=== PATIENT | female | born 1935 ===

== ENCOUNTER 2019-01-22 19:07 | Emergency (ER) | payer OTHER ==
--- NOTE | 2019-01-22 20:20 | RAD REPORT ---
EXAM DESCRIPTION: RAD - Humerus Right - 01/22/2019 8:14 pm CLINICAL HISTORY: Swelling;Pain COMPARISON: No comparisons FINDINGS: Degenerative changes are present involving the AC joint. High-riding humeral head is noted . No acute fracture or dislocation seen.
--- NOTE | 2019-01-22 20:25 | RAD REPORT ---
EXAM DESCRIPTION: CT - CTHCSPWOC - 01/22/2019 8:14 pm CLINICAL HISTORY: Trauma, head and neck injury. PAIN COMPARISON: No comparisons TECHNIQUE: Axial 5 mm thick images of the head were obtained. Axial 2 mm thick images of the cervical spine were obtained with sagittal and coronal reconstruction images generated and reviewed. All CT scans are performed using dose optimization technique as appropriate and may include automated exposure control or mA/KV adjustment according to patient size. FINDINGS: CT HEAD WITHOUT CONTRAST: No acute hemorrhage, hydrocephalus or extra-axial collection is identified.No areas of brain edema or midline shift. The paranasal sinuses and mastoids are clear.The calvarium is intact. Left frontal scalp hematoma is seen. CT CERVICAL SPINE WITHOUT CONTRAST: No fracture or subluxation.Moderate mid cervical degenerative changes.No prevertebral soft tissues sw elling is identified. IMPRESSION: No acute intracranial or cervical spine findings. Moderate midcervical degenerative changes.
--- NOTE | 2019-01-22 20:26 | RAD REPORT ---
EXAM DESCRIPTION: CT - CTFB CLINICAL HISTORY: SWELLING Trauma, facial pain and swelling. COMPARISON: No comparisons TECHNIQUE: Axial 2 mm thick images of the face were obtained with sagittal and coronal reconstructio n images. All CT scans are performed using dose optimization technique as appropriate and may include automated exposure control or mA/KV adjustment according to patient size. FINDINGS: No acute facial bone fracture is seen.The mandible is intact. Left frontal scalp and perio rbital soft tissue swelling. The globes and orbital contents are grossly unremarkable.The paranasal sinuses and mastoids are clear . IMPRESSION: Negative for facial bone fracture.
[2019-01-22] MEDS ORDERED: LIDOCAINE 1% MPF 5 ML VIAL ONE (21:02)
[2019-01-22] MEDS ORDERED: TETANUS & DIPHTHERIA TOX,ADULT 0.5 ML VIAL ONE (21:11)
--- NOTE | 2019-01-22 21:18 | ER ---
Nurse's Notes [facility] Name: Kalli Krause Age: 83 yrs Sex: Female : 1935 Arrival Date: 01/22/2019 Time: 19:07 Bed 7 Private MD: Diagnosis: Contusion of unspecified part of head-left periorbital and left frontal scalp;Laceration without foreign body of left elbow Presentation: 01/22 19:21 Presenting complaint: she was walking down the stairs when she missed the last step and rv hit the concrete. denies LOC. does not take any blood thinner. Care prior to arrival: None. Mechanism of Injury: Fall down 1 steps. Trauma event details: Injury occurred in the [facility], Injury occurred: at home. Injury occurred: January 22, 2019 Injury occurred at: 18:30. 19:21 Acuity: ASHOK 3 rv 19:21 Method Of Arrival: Ambulatory rv 19:27 Transition of care: patient was not received from another setting of care. Onset of ak1 symptoms was January 22, 2019. Risk Assessment: Do you want to hurt yourself or someone else? Patient reports no desire to harm self or others. Initial Sepsis Screen: Does the patient meet any 2 criteria? No. Patient's initial sepsis screen is negative. Does the patient have a suspected source of infection? No. Patient's initial sepsis screen is negative. Historical: - Allergies: 19:25 Codeine; rv - PMHx: 19:25 Diabetes - NIDDM; rv - PSHx: 19:25 Unable to obtain; rv - Immunization history: Last tetanus immunization: unknown. - Social history:: Smoking status: unknown. - Ebola Screening: : No symptoms or risks identified at this time. Screenin:23 Abuse screen: Denies threats or abuse. Denies injuries from another. Nutritional ak1 screening: No deficits noted. Tuberculosis screening: No symptoms or risk factors identified. Fall Risk None identified. Primary Survey: 19:25 NO uncontrolled hemorrhage observed. rv 19:27 Breathing/Chest: Respiratory pattern: regular, Respiratory effort: unlabored. ak1 Circulation: Skin color: pink, Skin temperature: warm, dry. Disability Alert. Exposure/Environment: All clothing and personal items were removed. Forensic evidence collection is not deemed to be indicated at this time. Items placed in patient belonging bag. There is no evidence of uncontrolled external bleeding. Obvious injury(ies) are noted at this time: swelling above left eye with an abrasion. left elbow with abrasion. 19:29 Reassessment Breathing/Chest Respiratory pattern Regular Respiratory effort Spontaneous ak1 Unlabored Circulation Color [place] Temperature Warm Dry Disability Alert. Secondary Survey: 19:27 HEENT: Eyes: Edema noted left eyebrow and left upper eyelid. Gastrointestinal: No ak1 deficits noted. : No signs and/or symptoms were reported regarding the genitourinary system. Musculoskeletal: No signs and/or symptoms reported regarding the musculoskeletal system. Injury Description: trip and fall from standing. Assessment: 19:22 General: Appears in no apparent distress. uncomfortable, Behavior is calm, cooperative. rv Pain: Complains of pain in head, left and right elbow. right side of the hip. Neuro: Level of Consciousness is awake, alert, obeys commands, Oriented to person, place, time, situation. EENT:. Cardiovascular: Patient's skin is warm and dry. Respiratory: Airway is patent. GI: No signs and/or symptoms were reported involving the gastrointestinal system. : No signs and/or symptoms were reported regarding the genitourinary system. Derm: Skin is intact. Musculoskeletal: Swelling present in left eye and left hand. 19:23 General: Appears in no apparent distress. comfortable, well groomed, Behavior is calm, ak1 cooperative, anxious. Pain: Complains of pain in inner aspect of left eyebrow, middle aspect of left eyebrow, outer aspect of left eyebrow and left supraorbital ridge. Neuro: Level of Consciousness is awake, alert, obeys commands, Oriented to person, place, time, situation, Appropriate for age Paint [employer] Table Edger are equal bilaterally Moves all extremities. Full function Speech is normal, swelling noted above left eye. Pupils are PERRLA. Cardiovascular: No deficits noted. Respiratory: Airway is patent Respiratory effort is even, unlabored. GI: No signs and/or symptoms were reported involving the gastrointestinal system. : No signs and/or symptoms were reported regarding the genitourinary system. EENT: Eyes pt able to move left eye. pt denies LOC with fall at 1800. swelling and abrasion above left eye. Derm: Wound noted Other: abrasion to left elbow, cleaned and triple antibiotic applied with bandaid. Musculoskeletal: No signs and/or symptoms reported regarding the musculoskeletal system. 20:09 Reassessment: Patient and/or family updated on plan of care and expected duration. Pain ea level reassessed. Patient is alert, oriented x 3, equal unlabored respirations, skin warm/dry/pink. Pt taken to CT. 20:25 Reassessment: Patient and/or family updated on plan of care and expected duration. Pain ea level reassessed. Patient is alert, oriented x 3, equal unlabored respirations, skin warm/dry/pink. Returned from CT. 20:44 Reassessment: Patient and/or family updated on plan of care and expected duration. Pain ea level reassessed. Patient is alert, oriented x 3, equal unlabored respirations, skin warm/dry/pink. Provider at bedside updating pt on plan of care. 21:54 Reassessment: Patient and/or family updated on plan of care and expected duration. Pain ea level reassessed. Patient is alert, oriented x 3, equal unlabored respirations, skin warm/dry/pink. Discharge instruction given to patient, verbalized the understanding of instruction. Pt left ED ambulatory accompanied by family. tolerating well. Vital Signs: 19:22 BP 162 / 101; Pulse 107; Resp 16; Temp 98.3; Pulse Ox 96% on R/A; ak1 20:09 BP 185 / 49; Pulse 97; Resp 18; Pulse Ox 96% on R/A; ea 21:30 BP 160 / 58; Pulse 78; Resp 18; Pulse Ox 96% on R/A; ea Visual Acuity: 19:23 ; pt denies visual changes in left eye. pt stated she can see out of the left eye ak1 [place] Coma Score: 19:23 Eye Response: spontaneous(4). Verbal Response: oriented(5). Motor Response: obeys ak1 commands(6). Total: 15. 20:09 Eye Response: spontaneous(4). Verbal Response: oriented(5). Motor Response: obeys ea commands(6). Total: 15. Trauma Score (Adult): 19:23 Eye Response: spontaneous(1); Verbal Response: oriented(1); Motor Response: obeys ak1 commands(2); Systolic BP: > 89 mm Hg(4); Respiratory Rate: 10 to 29 per min(4); [place] Score: 15; Trauma Score: 12 ED Course: 19:07 Patient arrived in ED. as 19:20 Travis Lowry, BROKERAGE MANAGER is PHCP. pm1 19:20 Brady Kovacs MD is Attending Physician. pm1 19:21 David Collier, RN is Primary Nurse. rv 19:22 Kelley Rachel, RN is Primary Nurse. ak1 19:22 Triage completed. rv 19:23 Patient has correct armband on for positive identification. Placed in gown. Bed in low ak1 position. Call light in reach. Side rails up X 1. Adult w/ patient. Pulse ox on. NIBP on. Warm blanket given. 19:25 Arm band placed on right wrist. Patient placed in the treatment room, on a stretcher, rv on cook night, on pulse oximetry, Patient notified of wait time. 19:27 No provider procedures requiring assistance completed. ak1 19:27 Patient maintains SpO2 saturation greater than 95% on room air. ak1 19:29 Thermoregulation: warm blanket given to patient. ak1 20:07 Humerus Right XRAY In Process Unspecified. EDMS 20:15 CT Head C Spine In Process Unspecified. EDMS 20:15 CT Facial Bones W/O Con In Process Unspecified. EDMS 21:14 Assist provider with laceration repair on left elbow that was between 2.6 to 7.5 cm ea using sutures. Set up tray. Performed by Travis Lowry BROKERAGE MANAGER Dressed with Neosporin, Patient tolerated well. 21:55 Patient did not have IV access during this emergency room visit. ea Administered Medications: 21:08 Drug: Lidocaine (1 %) 5 ml {Note: administered by provider.} Volume: 5 ml; Route: ea Infiltration; 21:13 Drug: Tetanus-Diphtheria Toxoid Adult 0.5 ml {Steamtable Attendant Railroad: [employer]. Exp: ea 08/03/2020. Lot #: [id number]. } Route: IM; Site: left deltoid; 21:55 Follow up: Response: No adverse reaction ea Intake: 19:27 PO: 0ml; Total: 0ml. ak1 Outcome: 21:17 Discharge ordered by . pm1 21:55 Discharged to home ambulatory, with family. ea 21:55 Condition: stable 21:55 Discharge instructions given to patient, Instructed on discharge instructions, follow up and referral plans. medication usage, Demonstrated understanding of instructions, follow-up care, medications, Prescriptions given X 1. 21:55 Patient's length of stay was not longer than 2 hours. ea 21:55 Patient left the ED. ea Signatures: Dispatcher [employer] EDYaz Zaragoza Amber, RN RN ak1 Travis Lowry, BROKERAGE MANAGER BROKERAGE MANAGER pm1 Che Ulloa RN RN David Espitia RN RN rv
--- NOTE | 2019-01-22 21:18 | EDPHYS ---
Physician Documentation [facility] Name: Kalli Krause Age: 83 yrs Sex: Female : 1935 Arrival Date: 01/22/2019 Time: 19:07 Bed 7 Private MD: ED Physician Brady Kovacs HPI: 01/22 20:23 This 83 yrs old Female presents to ER via Ambulatory with complaints of Fall Injury, pm1 Laceration. 20:23 Details of fall: The patient fell and struck a concrete surface. Onset: The pm1 symptoms/episode began/occurred just prior to arrival. Associated injuries: The patient sustained injury to the head, contusion, swelling, to left forehead, left elbow, laceration, right bicep, swelling. The patient has not recently seen a physician, out of town. Patient was walking down a step and tripped. Her right hand held onto the rail and she landed on her left forehead. No LOC, neck pain, N/V. Patient presenting with laceration to left elbow and swelling to left forehead. Historical: - Allergies: 19:25 Codeine; rv - PMHx: 19:25 Diabetes - NIDDM; rv - PSHx: 19:25 Unable to obtain; rv - Immunization history: Last tetanus immunization: unknown. - Social history:: Smoking status: unknown. - Ebola Screening: : No symptoms or risks identified at this time. ROS: 20:23 Constitutional: Negative for fever, chills, and weight loss, Eyes: Negative for injury, pm1 pain, redness, and discharge, ENT: Negative for injury, pain, and discharge, Neck: Negative for injury, pain, and swelling, Cardiovascular: Negative for chest pain, palpitations, and edema, Respiratory: Negative for shortness of breath, cough, wheezing, and pleuritic chest pain, Abdomen/GI: Negative for abdominal pain, nausea, vomiting, diarrhea, and constipation, Back: Negative for injury and pain. 20:23 MS/extremity: Positive for pain, of the right bicep, Negative for decreased range of motion, deformity. 20:23 Skin: Positive for laceration(s), of the left elbow. 20:23 Neuro: Positive for headache, of the left supraorbital ridge and left side of forehead, Negative for dizziness, loss of consciousness, numbness, seizure activity, tingling, weakness. Exam: 20:23 Constitutional: This is a well developed, well nourished patient who is awake, alert, pm1 and in no acute distress. 20:23 Eyes: Pupils equal round and reactive to light, extra-ocular motions intact. Lids and lashes normal. Conjunctiva and sclera are non-icteric and not injected. Cornea within normal limits. Periorbital areas with no swelling, redness, or edema. ENT: Nares patent. No nasal discharge, no septal abnormalities noted. Tympanic membranes are normal and external auditory canals are clear. Oropharynx with no redness, swelling, or masses, exudates, or evidence of obstruction, uvula midline. Mucous membranes moist. Neck: Trachea midline, no thyromegaly or masses palpated, and no cervical lymphadenopathy. Supple, full range of motion without nuchal rigidity, or vertebral point tenderness. No Meningismus. Chest/axilla: Normal chest wall appearance and motion. Nontender with no deformity. No lesions are appreciated. Cardiovascular: Regular rate and rhythm with a normal S1 and S2. No gallops, murmurs, or rubs. Normal PMI, no JVD. No pulse deficits. Respiratory: Lungs have equal breath sounds bilaterally, clear to auscultation and percussion. No rales, rhonchi or wheezes noted. No increased work of breathing, no retractions or nasal flaring. Abdomen/GI: Soft, non-tender, with normal bowel sounds. No distension or tympany. No guarding or rebound. No evidence of tenderness throughout. Back: No spinal tenderness. No costovertebral tenderness. Full range of motion. 20:23 Head/face: Noted is no obvious of injury or deformity except contusion, of the left supraorbital ridge and left side of forehead. 20:23 Musculoskeletal/extremity: Extremities: grossly normal except: noted in the right bicep: swelling, There is no evidence of decreased ROM, deformity. 20:23 Skin: Appearance: normal except for affected area, injury, laceration(s), the wound is approximately 1.5 cm(s), with a depth of 0.5 cm(s), of the left elbow. Vital Signs: 19:22 BP 162 / 101; Pulse 107; Resp 16; Temp 98.3; Pulse Ox 96% on R/A; ak1 20:09 BP 185 / 49; Pulse 97; Resp 18; Pulse Ox 96% on R/A; ea 21:30 BP 160 / 58; Pulse 78; Resp 18; Pulse Ox 96% on R/A; ea [place] Coma Score: 19:23 Eye Response: spontaneous(4). Verbal Response: oriented(5). Motor Response: obeys ak1 commands(6). Total: 15. 20:09 Eye Response: spontaneous(4). Verbal Response: oriented(5). Motor Response: obeys ea commands(6). Total: 15. Trauma Score (Adult): 19:23 Eye Response: spontaneous(1); Verbal Response: oriented(1); Motor Response: obeys ak1 commands(2); Systolic BP: > 89 mm Hg(4); Respiratory Rate: 10 to 29 per min(4); [place] Score: 15; Trauma Score: 12 Visual Acuity: 19:23 ; pt denies visual changes in left eye. pt stated she can see out of the left eye ak1 Laceration: 21:14 Wound Repair of 1.5cm ( 0.6in ) subcutaneous laceration to left elbow. Linear shaped.. pm1 Distal neuro/vascular/tendon intact. Anesthesia: Local anesthetic administered with 1 mls of 1% lidocaine. Wound prep: Extensive cleansing with hibiclenz by me, Wound irrigation with saline by me, Wound explored extensively, Copious irrigation. Skin closed with 2 4-0 Prolene using simple sutures and sterile technique. Dressed with Neosporin, 4x4's. Patient tolerated well. MDM: 19:20 Patient medically screened. pm1 20:48 Data reviewed: vital signs. Data interpreted: Pulse oximetry: on room air is 96 %. pm1 Interpretation: normal. 21:14 Counseling: I had a detailed discussion with the patient and/or guardian regarding: the pm1 historical points, exam findings, and any diagnostic results supporting the discharge/admit diagnosis, radiology results, the need for outpatient follow up, suture removal in 10-14 days, to return to the emergency department if symptoms worsen or persist or if there are any questions or concerns that arise at home. 01/22 19:51 Order name: CT Head C Spine; Complete Time: 20:39 pm1 01/22 19:51 Order name: CT Facial Bones W/O Con; Complete Time: 20:39 pm1 01/22 19:51 Order name: Humerus Right XRAY; Complete Time: 20:39 pm1 01/22 19:51 Order name: Wound Care; Complete Time: 20:12 pm1 01/22 20:56 Order name: Prolene, Sutures; Complete Time: 20:58 pm1 01/22 20:56 Order name: Dressing - Wound; Complete Time: 20:58 pm1 01/22 20:56 Order name: Gloves, Sterile; Complete Time: 20:58 pm1 01/22 20:56 Order name: Setup Suture Tray; Complete Time: 20:58 pm1 01/22 21:18 Order name: Sling; Complete Time: 21:44 pm1 Administered Medications: 21:08 Drug: Lidocaine (1 %) 5 ml {Note: administered by provider.} Volume: 5 ml; Route: ea Infiltration; 21:13 Drug: Tetanus-Diphtheria Toxoid Adult 0.5 ml {Medical Radiation Tech: [employer]. Exp: ea 08/03/2020. Lot #: [id number]. } Route: IM; Site: left deltoid; 21:55 Follow up: Response: No adverse reaction ea Disposition: 01/23 03:38 Co-signature as Attending Physician, Brady Kovacs MD I agree with the assessment and 4 plan of care. Disposition: 01/22/19 21:17 Discharged to Home. Impression: Contusion of unspecified part of head - left periorbital and left frontal scalp, Laceration without foreign body of left elbow. - Condition is Stable. - Discharge Instructions: Facial or Scalp Contusion, Laceration Care, Adult, How to Use a Sling. - Prescriptions for Keflex 500 mg Oral Capsule - take 1 capsule by ORAL route every 12 hours for 10 days; 20 capsule. - Medication Reconciliation Form, Thank You Letter, Antibiotic Education, Prescription Opioid Use form. - Follow up: Emergency Department; When: As needed; Reason: Worsening of condition. Follow up: Private Physician; When: 10 - 14 days; Reason: Wound Recheck, Recheck today's complaints, Continuance of care, Staple/Suture removal, Re-evaluation by your physician. - Problem is new. - Symptoms have improved. Signatures: Dispatcher [employer] Kelley Blue RN RN ak1 Travis Lowry, HYSTER MACHINE OPERATOR HYSTER MACHINE OPERATOR pm1 Che Ulloa, RN Brady Bearden ea, MD MD tw4 David Collier RN RN rv Corrections: (The following items were deleted from the chart) 01/22 21:55 21:17 01/22/2019 21:17 Discharged to Home. Impression: Contusion of unspecified part of ea head - left periorbital and left frontal scalp; Laceration without foreign body of left elbow. Condition is Stable. Forms are Medication Reconciliation Form, Thank You Letter, Antibiotic Education, Prescription Opioid Use. Follow up: Emergency Department; When: As needed; Reason: Worsening of condition. Follow up: Private Physician; When: 10 - 14 days; Reason: Wound Recheck, Recheck today's complaints, Continuance of care, Staple/Suture removal, Re-evaluation by your physician. Problem is new. Symptoms have improved. pm1 01/23 00:54 01/22 20:23 Skin: Appearance: normal except for affected area, injury, laceration(s), pm1 the wound is approximately 2 cm(s), with a depth of 0.5 cm(s), of the left elbow, pm1
[2019-01-22 22:33] VITALS: TEMP 98.3; O2SAT 96
[2019-01-22 22:34] VITALS: BP 185/49
== END 2019-01-22 21:55 | disposition home or self-care (01) ==
LOC: ER 19:07
PROC: 0JQH0ZZ Repair Left Lower Arm Subcutaneous Tissue and Fascia, Open Approach (ICD-10-PCS; principal; 2019-01-22)
DX: S51.012A Laceration without foreign body of left elbow, initial encounter (principal); S00.83XA Contusion of other part of head, initial encounter; W10.9XXA Fall (on) (from) unspecified stairs and steps, initial encounter; Y93.01 Activity, walking, marching and hiking; Y92.9 Unspecified place or not applicable; E11.9 Type 2 diabetes mellitus without complications; Z23 Encounter for immunization; Z88.5 Allergy status to narcotic agent
CPT/HCPCS: 70450; 70486; 72125; 76377; 90471; 90714; 99284